=== PATIENT | female | born 1955 | race Caucasian/White ===

== ENCOUNTER 2020-01-04 06:54 | Outpatient (REF) | payer MEDICARE, OTHER, SELFPAY ==
[2020-01-04 08:20] LABS: MANUAL DIFF FLAG NO
[2020-01-04 08:22] LABS: Basophils Absolute Auto 0.1 X10*3/uL (0.0-0.2); Basophils Percent Auto 0.7 % (0-2); Eosinophils Absolute Auto 0.3 X10*3/uL (0.0-0.4); Eosinophils Percent Auto 4.6 % (0-4); Hematocrit 44.9 % (37-47); Hemoglobin 14.7 g/dl (12.0-16.0); Imm Gran Abs Auto 0.02 X10*3/uL (0.00-0.03); Imm Gran Pct Auto 0.3 % (0.0-0.4); Lymphocytes Absolute Auto 2.4 X10*3/uL (1.2-4.9); Mean Corpuscular HGB Conc 32.7 g/dl (31.0-35.0); Mean Corpuscular Volume 88.6 fL (80-98); Mean Platelet Volume 9.9 fL (9.4-12.3); Monocytes Absolute Auto 0.6 X10*3/uL (0.1-1.2); Monocytes Percent Auto 8.1 % (2-11); Neutrophils Absolute Auto 3.5 X10*3/uL (2.0-8.3); Neutrophils Percent Auto 51.3 % (45-73); Platelet Count 340 X10*3/uL (160-400); Red Blood Count 5.07 X10*6/uL (4.20-5.50); Red Cell Distribution Width 12.3 % (11.0-16.0); White Blood Count 6.9 X10*3/uL (4.8-10.8)
[2020-01-04 08:49] LABS: Alanine Aminotransferase 17 U/L (0-31); Albumin Level 4.1 g/dL (3.5-5.0); Alkaline Phosphatase 99 U/L (39-117); Anion Gap 13 (12-20); Aspartate Amino Transferase 16 U/L (5-31); Bilirubin Total 0.8 mg/dL (0.0-1.0); Blood Urea Nitrogen 13 mg/dL (9-16); Calcium 8.9 mg/dL (8.4-10.2); Carbon Dioxide 26 mmol/L (22-29); Chloride 105 mmol/L (96-108); Cholesterol 126 mg/dL; Estimated Glomerular Filt Rate > 60; Glucose Fasting 86 mg/dL (60-99); HDL Cholesterol 39 mg/dL; LDL Cholesterol Calculated 71 mg/dl; Potassium 4.5 mmol/l (3.3-5.1); Sodium 139 mmol/L (135-145); Total Protein 6.5 g/dL (6.5-8.0); Triglycerides 83 mg/dL
== END 2020-01-04 06:55 | disposition home or self-care (01) ==
LOC: HO.LAB 06:54
PROVIDERS: PCP Internal Medicine Medical Oncology; Visit Provider Internal Medicine Medical Oncology
DX: E78.2 Mixed hyperlipidemia (principal)
CPT/HCPCS: 36415; 80053; 80061; 85025

== ENCOUNTER 2021-02-15 12:24 | Outpatient (REF) | payer MEDICARE, OTHER, SELFPAY ==
--- NOTE | ~2021-02-15 | MM_ITS ---
EXAMINATION: BONE DENSITOMETRY CLINICAL INDICATION: Encounter for screening for osteoporosis. COMPARISON: This is the patient's baseline examination. TECHNIQUE: Using a [employer] DXA System (software version: 13.1) manufactured by [employer], dual-energy x-ray absorptiometry was performed of the lumbar spine and left hip. The images are of good technical quality. Summary results are attached. FINDINGS: AP SPINE L1-L4: BMD 0.977 g/cm2, Z-score 0.0, T-score -1.7, osteopenia. LEFT FEMUR, NECK: BMD 0.678 g/cm2, Z-score -1.0, T-score -2.6, osteoporosis. LEFT FEMUR, TOTAL: BMD 0.769 g/cm2, Z-score -0.5, T-score -1.9, osteopenia. IDENTIFIED RISK FACTORS: Menopause. HISTORY OF FRACTURE: None listed. MEDICATIONS: None listed. MM/XR DEXA axial skeleton IMPRESSION: 1. DIAGNOSIS: Osteoporosis based on the lowest T-score value of -2.6 in the femoral neck applying World Health Organization criteria. 2. 10-YEAR FRACTURE RISK PREDICTION, FRAX: Major osteoporotic fracture (clinical spine, forearm, hip or shoulder) 14.5%. Hip fracture 3.4%. 3. Treatment Recommendations: NOF guidelines recommend consideration for treatment in postmenopausal women and men age 50 and older presenting with the following: -A hip or vertebral (clinical or morphometric) fracture. -T-score less than or equal to -2.5 at the femoral neck or spine after appropriate evaluation to exclude secondary causes. -Low bone mass at the hip or spine and a 10-year fracture probability by FRAX of greater than or equal to 3% for hip fracture or greater than or equal to 20% for major osteoporotic fracture based on the [place] adapted WHO algorithm. 4. Other Recommendations: All treatment decisions require clinical judgment and consideration of individual patient factors, including patient preferences, comorbidities, previous drug use, risk factors not captured in the FRAX model (e.g. frailty, falls, vitamin D deficiency, increased bone turnover, interval significant decline in bone density) and possible under or overestimation of fracture risk by FRAX. Additional medical evaluation for secondary cause of low bone mineral density may be appropriate. FUTURE SCAN RECOMMENDATION: People with diagnosed cases of osteoporosis or at high risk for fracture should have regular bone mineral density tests. For patients eligible for Medicare, routine testing is allowed once every 2 years. The testing frequency can be increased to one year for patients who have rapidly progressing disease, those who are receiving or discontinuing medical therapy to restore bone mass, or have additional risk factors.
--- NOTE | ~2021-02-15 | MM_ITS ---
EXAMINATION: MM SCREENING DIGITAL BREAST TOMOSYNTHESIS, BILATERAL CLINICAL INFORMATION: Screening. Asymptomatic. The lifetime risk of breast cancer based on the Tyrer-Cuzick Model is 6%. COMPARISON: Mammography: 08/31/2019, 08/25/2018, 06/23/2017, 05/07/2016 TECHNIQUE: Digital breast tomosynthesis is performed in both the craniocaudal and mediolateral oblique views along with computer-aided detection (CAD). Synthesized 2D images are generated from the tomosynthesis. Additional right MLO view is provided. FINDINGS: There are scattered areas of fibroglandular density (ACR BI-RADS breast composition Category b). There are no significant masses, abnormal calcifications, or other abnormalities. Parenchymal pattern is similar to prior studies. There is no developing density or architectural abnormality. The axilla and skin contours are unremarkable. No significant changes. MM/MM tomosynthesis screening BI IMPRESSION: No mammographic evidence of malignancy. ASSESSMENT: BI-RADS 1: Negative RECOMMENDATION: Routine annual mammography screening. This patient's information was entered into a reminder system with a target due date for their next mammogram.
== END 2021-02-15 12:25 | disposition home or self-care (01) ==
LOC: HO.MAMMO 12:24
PROVIDERS: PCP Internal Medicine Medical Oncology; Visit Provider Obstetrics & Gynecology Gynecology
DX: Z12.31 Encounter for screening mammogram for malignant neoplasm of breast (principal); Z13.820 Encounter for screening for osteoporosis; M81.0 Age-related osteoporosis without current pathological fracture; N95.9 Unspecified menopausal and perimenopausal disorder; Z78.0 Asymptomatic menopausal state
CPT/HCPCS: 77063; 77067; 77080

== ENCOUNTER 2022-01-30 07:52 | Outpatient (REF) | payer MEDICARE, OTHER, SELFPAY ==
[2022-01-30 08:49] LABS: COVID-19 Test Negative (Negative); IDNOW Serial# 16C4AD1C
== END 2022-01-30 07:53 | disposition home or self-care (01) ==
LOC: HO.LAB 07:52
PROVIDERS: Visit Provider Internal Medicine
DX: Z20.822 Contact with and (suspected) exposure to COVID-19 (principal)
CPT/HCPCS: 87635; C9803

== ENCOUNTER 2022-03-17 13:04 | Outpatient (REF) | payer MEDICARE, OTHER, SELFPAY ==
--- NOTE | ~2022-03-17 | MM_ITS ---
EXAMINATION: MM SCREENING DIGITAL BREAST TOMOSYNTHESIS, BILATERAL CLINICAL INFORMATION: Screening. Asymptomatic. The lifetime risk of breast cancer based on the Tyrer-Cuzick Model is 6.5%. COMPARISON: Mammography: February 15, 2021 and studies dating back to March 12, 2015 TECHNIQUE: Digital breast tomosynthesis is performed in both the craniocaudal and mediolateral oblique views along with computer-aided detection (CAD). Synthesized 2D images are generated from the tomosynthesis. FINDINGS: The breasts are almost entirely fatty (ACR BI-RADS breast composition Category a). There are no significant masses, abnormal calcifications, or other abnormalities. MM/MM tomosynthesis screening BI IMPRESSION: No significant changes from prior exam. ASSESSMENT: BI-RADS 1: Negative RECOMMENDATION: Routine annual mammography screening. This patient's information was entered into a reminder system with a target due date for their next mammogram.
== END 2022-03-17 13:05 | disposition home or self-care (01) ==
LOC: HO.MAMMO 13:04
PROVIDERS: PCP Family Medicine; Visit Provider Obstetrics & Gynecology Gynecology
DX: Z12.31 Encounter for screening mammogram for malignant neoplasm of breast (principal)
CPT/HCPCS: 77063; 77067

== ENCOUNTER 2022-03-21 08:15 | Outpatient (REF) | payer MEDICARE, OTHER, SELFPAY ==
[2022-03-21 08:43] LABS: COVID-19 Test Negative (Negative); IDNOW Serial# 16C4AD1C
== END 2022-03-21 08:16 | disposition home or self-care (01) ==
LOC: HO.LAB 08:15
PROVIDERS: Visit Provider Internal Medicine
DX: Z20.822 Contact with and (suspected) exposure to COVID-19 (principal)
CPT/HCPCS: 87635; C9803

== ENCOUNTER 2022-06-07 10:11 | Outpatient (REF) | payer MEDICARE, OTHER, SELFPAY | END 2022-06-07 10:12 | disposition home or self-care (01) | LOC: HO.LAB 10:11 | PROVIDERS: Visit Provider Nurse Practitioner Acute Care | DX: Z13.89 Encounter for screening for other disorder (principal) ==

== ENCOUNTER 2022-06-07 11:26 | Outpatient (REF) | payer MEDICARE, OTHER, SELFPAY ==
[2022-06-07 12:11] LABS: Influenza A PCR NEGATIVE (Negative); Influenza B PCR NEGATIVE (Negative); Resp Syncy Virus RNA Qual PCR NEGATIVE (Negative); SARS COV2 PCR INHOUSE POSITIVE (Negative)
== END 2022-06-07 11:27 | disposition home or self-care (01) ==
LOC: HO.LNP 11:26
PROVIDERS: Visit Provider Nurse Practitioner Acute Care
DX: Z20.822 Contact with and (suspected) exposure to COVID-19 (principal); R68.89 Other general symptoms and signs
CPT/HCPCS: 0241U

== ENCOUNTER 2023-04-16 15:36 | Outpatient (REF) | payer MEDICARE, OTHER, SELFPAY | END 2023-04-16 15:37 | disposition home or self-care (01) | LOC: HO.MAMMO 15:36 | PROVIDERS: PCP Family Medicine; Referring Provider Obstetrics & Gynecology Gynecology; Visit Provider Family Medicine | DX: Z12.31 Encounter for screening mammogram for malignant neoplasm of breast (principal) | CPT/HCPCS: 77063; 77067 ==

== ENCOUNTER → 2023-04-16 16:15 | Outpatient (BNV) | payer MEDICARE, OTHER, SELFPAY | PROVIDERS: PCP Family Medicine; Referring Provider Obstetrics & Gynecology Gynecology; Visit Provider Radiology Diagnostic Radiology | DX: Z12.31 Encounter for screening mammogram for malignant neoplasm of breast (principal) | CPT/HCPCS: 77063; 77067 ==

== ENCOUNTER 2024-05-13 08:26 | Outpatient (REF) | payer MEDICARE, OTHER, SELFPAY ==
--- OUTSIDE RECORDS SUMMARY | 2024-05-13 08:45 | XMS_ITS ---
Author Organization [employer] [facility] Address [address] [place] [address] Care Team Providers Care Outside Sales Manager Name Role Phone JOANNA BIRCH MD Primary Care Provider Kim Bautista Unavailable [phone] Allergies Allergen (clinical drug ingredient) Drug/Non Drug Allergy documented on EMR Reaction Allergy Type Onset Date Status Penicillin Unknown Drug Allergy Active Substance with sulfonamide structure and antibacterial mechanism of action (substance) Sulfa Antibiotics Skin Rash Drug Allergy Active Results Component Value Reference Range Notes Urinalysis (Not yet reviewed by provider) Interpretation: Performing Lab: Notes/Report: NITRITE NEG PH 5.0 PROTEIN TRACE S.G 1.030 WBC NEG GLUCOSE NEG KETONES NEG UROBILINOGEN NEG BILIRUBIN NEG BLOOD MED COMPLETE URINALYSIS Reviewed date:03/22/2023 12:12:30 PM Interpretation: Performing Lab:Testing performed or reported by [facility], a Service of [facility], [address] [place] [address] Bernardo Fuentes MD, Linoleum Floor Layer [facility]# [id number] Notes/Report: APPEAR/COLOR YELLOW CLEAR SP. GRAVITY 1.024 (1.002-1.030) URINE PH 6.0 (5.0-8.0) URINE ALBUMIN TRACE (NEG) URINE GLUCOSE NEGATIVE (NEG) URINE KETONES NEGATIVE (NEG) URINE BILIRUBIN NEGATIVE (NEG) URINE HEMOGLOBIN TRACE (NEG) URINE NITRITE NEGATIVE (NEG) URINE LEUKOCYTE TRACE (NEG) UROBILINOGEN NORMAL (NORM) MG/DL URINE WBCs 9 (0-5) /HPF URINE RBCs 4 (0-3) /HPF BACTERIA SLIGHT (NEG) HPF MUCUS SLIGHT SQUAMOUS EPITH 3 (0-8) /HPF CALCIUM OXALATE CRYSTAL SLIGHT URINE CULTURE Reviewed date:03/25/2023 02:25:13 PM Interpretation: Performing Lab:Testing performed or reported by [facility], a Service of [facility], [address] [place] [address] [place] [address] Bernardo Fuentes MD, Linoleum Floor Layer [facility]# [id number] Notes/Report: SPECIMEN DESCRIPTION URINE CLEAN CATCH/MIDSTREAM SPECIAL REQUESTS NONE CULTURE NO GROWTH REPORT STATUS FINAL 03/20/2023 REASON FOR VISIT ? UTI Medications Medication SIG (Take, Route, Frequency, Duration) Notes Start Date End Date Status Lipitor 40MG 1 ORAL daily for -3 Costa-MJ 06/23/2011 Active Calcium + D 500-1000-40 MG-UNT-MCG as directed Orally Active Yuvafem 10 MCG 1 tablet Vaginal TWI CE A WEEK for 90 days 03/19/2023 Active Vital Signs Temperature 97.1 degrees Fahrenheit 03/19/19 24 Blood pressure systolic 118 mm Hg 03/19/19 24 Blood pressure diastolic 78 mm Hg 024 Height 61 in 03/19/2023 Weight 143 lbs 03/19/2023 BMI 27.02 kg/m2 03/19/2023 Encounters Encounter Location Date Provider Diagnosis Total [address] [place] [address] 03/19/2023 Kim Lagunas Dysuria R30.0 and Postmenopausal atrophic vaginitis N95.2 Assessments Encounter Date Diagnosis (ICD Code) Assessment Notes Treatment Notes Treatment Clinical Notes Section Notes 03/19/2023 Dysuria (ICD-10 - R30.0) OFFICIAL UA AND URINE C/S INCREASE FLUID INTAKE. CONITNUE FOLLOW UP WITH UROLOGIST. 03/19/2023 Postmenopausal atrophic vaginitis (ICD-10 - N95.2) DISCUSSED FINDINGS, DX AND TX OPTIONS. BENEFITS OF INTRAVAGINAL ESTROGEN ON BLADDER AND VAGINA WERE EMPHASIZED. RECOMMENDED YUVAFEM. PAT AGREED. SHE HAS NO CONTRAINDICATIONS AND ACCEPTS RISKS. DETAILED INSTRUCTIONS AND RX WERE GIVEN. Plan Of Treatment Medication Medication Name Sig Start Date Stop Date Notes Yuvafem 10 MCG 1 tablet Vaginal TWICE A WEEK for 90 days 0 03/19/2023 Treatment Notes Assessment Notes Dysuria OFFICIAL UA AND URINE C/S INCREASE FLUID INTAKE. CONITNUE FOLLOW UP WITH UROLOGIST. Postmenopausal atrophic vaginitis DISCUSSED FINDINGS, DX AND TX OPTIONS. BENEFITS OF INTRAVAGINAL ESTROGEN ON BLADDER AND VAGINA WERE EMPHASIZED. RECOMMENDED YUVAFEM. PAT AGREED. SHE HAS NO CONTRAINDICATIONS AND ACCEPTS RISKS. DETAILED INSTRUCTIONS AND RX WERE GIVEN. Pending Test Test Name Order Date Urinalysis 03/19/2023 Next Appt Details Follow Up: prn, Reason: Progress Notes * RONALD MOOREDOB:1955 (67 yo F)Acc No.[id number]:03/19/2023 PROGRESS NOTES Patient:?RONALD MOORE Appointment Provider:?Kim harris M.D. :1955???Age:67 Y???Sex:Female D ate:03/19/2023 Address:[address] [place], [place] [id number] Pcp:JOANNA BIRCH MD Subjective: * Chief Complaints: * ? UTI * HPI: ???New/Follow-up Patient Consult:? PAT C/O URINARY URGENCY, FREQUENCY AND DYSURIA AND WAS SEEN AT URGENT CARE ON 03/14/22. SHE WAS TOLD SHE HAD A UTI BASED ON THEIR URINALYSIS. SHE WAS GIVEN AN ATIBIOTIC THAT HER PHARMACIST REFUSED TO FILL DUE TO HER PCN ALLERGY. SHE CALLED ME OVER THE WEEKEND AND I SENT HER AN RX FOR MACROBID. SHE LATER GOT A PHONE CALL FROM URGENT CARE SAYING HER CULTURE WAS NEGATIVE. ?PAT SAYS SHE STILL HAS SLIGHT DYSURIA AND HAS NOTED VAGINAL DISCOMFORT. SHE DENIES DYSPAREUNIA.SHE WILL COMPLETE MACROBID INTAKE, WE WILL SEND ANOTHER SAMPLE OF URINE FOR OFFICIAL UA AND URINE C/S. ?SHE HAS A HX OF NEPHROLITHIASIS AND USED TO SEE DR CHARLES. SHE IS NOW SEEING DR MCCANN. CT SCAN WAS PERFORMED AND IT SHOWED SMALL BILATERAL KIDNEY STONES. SHE WILL CONTINUE FOLLOW UP WITH HIM. * ROS:?general:?no?chest pain.?no?palpitations.?no?headache.?no?cough.?no?shortness of breath.?no?fever.?no?unexplained weight loss.?no?nausea/vomiting.?no?change in bowel movements.?no blood in stool.?genitourinary complaints?yes,?VAGINAL DRYNESS, SLIGHT DYSURIA.?no?skin complaints.? * Medical History:? * Radiosonde Operator History:?/ Para?0/0.?Sexual activity?currently sexually active.?Last Pap Smear:?08/02/18 NIL, NEG HPV, 08/24/13 NEG HRHPV, 05/01/12, neg.?Mammogram:?02/2022, 02/15/21 < 50% density, 08/31/19 < 50% density, 06/23/2017, Breast Tissue is Almost Entirely Fatty.?Abnormal Pap Smear:?No History of Abnormal Pap Smears.?LMP and menses?Belia 2010.? Control:?None.?Menopause: ?Began at age: ?55 ???Colonoscopy?01/2017, 2006.?Bone Density:?02/15/21, 01/19/14.? * OB History:?Total pregnancies?0.? * Medications:?TakingCalcium + D 500-1000-40 MG-UNT-MCG Tablet Chewable as directed Orally Lipitor 40MG 30 1 ORAL daily, Notes: Costa-MJTaking Calcium + D 500-1000-40 MG-UNT-MCG Tablet Chewable as directed Orally Taking Lipitor 40MG 30 1 ORAL daily, Notes: Costa-MJDiscontinuedPremarin 0.625 MG/GM Cream 1 GRAM Vaginal TWICE WEEKLYMedication List reviewed and reconciled with the patientDiscontinued Premarin 0.625 MG/GM Cream 1 GRAM Vaginal TWICE WEEKLYMedication List reviewed and reconciled with the patient * Allergies:?Sulfa Antibiotics : Skin Rash - AllergyPenicillin: Allergyno[Allergies Verified] Objective: * Vitals:?Ht: 61 in, Wt: 143 l bs, BMI:27.02 Index, BP: 118/78 mm Hg, Temp: 97.1 F. * Examination: ???Gynecological: ?EXTERNAL GENITALIA:?Normal female. No lesions, erythema or discharge.?VAGINA:? atrophic changes.?CERVIX:?No cervical motion tenderness, discharge or lesions.?UTERUS:? normal size, shape and consistency, normal mobility, nontender.?ADNEXA:?no masses or tenderness bilaterally.? Assessment: * Assessment: 1.?Postmenopausal atrophic v aginitis - N95.2?2.?Dysuria - R30.0 (Primary)? Plan: * Treatment: 2.?Postmenopausal atrophic v aginitis? Start Yuvafem Tablet, 10 MCG, 1 tablet, Vaginal, TWICE A WEEK, 90 days, 24 Tablet, Refills 4.?? Notes: DISCUSSED FINDINGS, DX AND TX OPTIONS. BENEFITS OF INTRAVAGINAL ESTROGEN ON BLADDER AND VAGINA WERE EMPHASIZED. RECOMMENDED YUVAFEM. PAT AGREED. SHE HAS NO CONTRAINDICATIONS AND ACCEPTS RISKS. DETAILED INSTRUCTIONS AND RX WERE GIVEN.?? * Labs:? * ?Lab: Urinalysis ? Value Reference Range ?NITRITE NEG * ?PH 5.0 * ?PROTEIN TRACE * ?S.G 1.030 * ?WBC NEG * ?GLUCOSE NEG * ?KETONES NEG * ?UROBILINOGEN NEG * ?BILIRUBIN NEG * ?BLOOD MED * Gilbert Michaels 03/19/2023 11:31:24 AM > ?Lab: URINE CULTURE?Lab: COMPLETE URINALYSIS * Procedure Codes:? * Follow Up:?prn * Images: Billing Information: * Visit Code:? * Procedure Codes:? * Sign off status: Completed true * Appointment Provider:?Kim Lagunas M.D. Date:?03/19/2023 Generated for Zane vaz/Suyapa/eTtroysmitting on:?05/13/2024 08:45 AM EDT History and Physical Notes * HPI (History of Present Illness) Category Sub-Category Detail Notes Category Not es New/Follow-up Patient Consult PAT C/O URINARY URGENCY, FREQUENCY AND DYSURIA AND WAS SEEN AT URGENT CARE ON 03/14/22. SHE WAS TOLD SHE HAD A UTI BASED ON THEIR URINALYSIS. SHE WAS GIVEN AN ATIBIOTIC THAT HER PHARMACIST REFUSED TO FILL DUE TO HER PCN ALLERGY. SHE CALLED ME OVER THE WEEKEND AND I SENT HER AN RX FOR MACROBID. SHE LATER GOT A PHONE CALL FROM URGENT CARE SAYING HER CULTURE WAS NEGATIVE. PAT SAYS SHE STILL HAS SLIGHT DYSURIA AND HAS NOTED VAGINAL DISCOMFORT. SHE DENIES DYSPAREUNIA.SHE WILL COMPLETE MACROBID INTAKE, WE WILL SEND ANOTHER SAMPLE OF URINE FOR OFFICIAL UA AND URINE C/S. SHE HAS A HX OF NEPHROLITHIASIS AND USED TO SEE DR CHARLES. SHE IS NOW SEEING DR MCCANN. CT SCAN WAS PERFORMED AND IT SHOWED SMALL BILATERAL KIDNEY STONES. SHE WILL CONTINUE FOLLOW UP WITH HIM. Examination Category Sub-Category Detail Notes Category Not es Gynecological CERVIX: No cervical alana on tenderness, discharge or lesions VAGINA: atrophic changes EXTERNAL GENITALIA: Normal female. No le sions, erythema or discharge UTERUS: normal size, shape a nd consistency, normal mobility, nontender ADNEXA: no masses or tendern ess bilaterally
--- OUTSIDE RECORDS SUMMARY | 2024-05-13 08:45 | XMS_ITS | Patient Health Record ---
Author Organization [employer] [facility] Address [address] [place] [address] Care Team Providers Care Attending Pathologist Name Role Phone JOANNA BIRCH MD Primary Care Provider Kim Bautista Unavailable [phone] Allergies Allergen (clinical drug ingredient) Drug/Non Drug Allergy documented on EMR Reaction Allergy Type Onset Date Status Penicillin Unknown Drug Allergy Active Substance with sulfonamide structure and antibacterial mechanism of action (substance) Sulfa Antibiotics Skin Rash Drug Allergy Active Reason For Referral No Information Medications Medication SIG (Take, Route, Frequency, Duration) Notes Start Date End Date Status Lipitor 40MG 1 ORAL daily for -3 Costa-MJ 06/23/2011 Active Calcium + D 500-1000-40 MG-UNT-MCG as directed Orally Active Yuvafem 10 MCG 1 tablet Vaginal TWI CE A WEEK for 90 days 03/19/2023 Active Social History Tobacco Use: Social History Observation Description Date Details (start date - stop date) Never Smoker NA - NA Tobacco Use/Smoking Question Answer Notes Are you a nonsmoker Alcohol Screen (Audit-C) Question Answer Notes Did you have a drink contain ing alcohol in the past year? Yes How often did you have a dri nk containing alcohol in the past year? Monthly or less (1 point) How many drinks did you have on a typical day when you were drinking in the past year? 1 or 2 drinks (0 point) Points 1 Interpretation Negative Tobacco use other than smoking: Question Answer Notes Are you an other tobacco user? No Problems Problem Type SNOMED Code ICD Code Onset Dates Problem Status W/U Status Risk Notes Problem Frequency of micturition (774182440) Frequency of micturition (R35.0) Active confirmed Problem Postmenopausal atrophic vaginitis (02259633) Postmenopausal atrophic vaginitis (N95.2) Active confirmed Problem Age-related osteoporosis (342616811) Age-related osteoporosis without current pathological fracture (M81.0) Active confirmed Problem Gynecological examination normal (984810887944084) Encounter for gynecological examination (general) (routine) without abnormal findings (Z01.419) Active confirmed Problem Hyperlipidemia (86473962) Hyperlipidemia, unspecified (E78.5) Active confirmed Problem Calculus of kidney (09839315) Calculus of kidney (N20.0) Active confirmed Problem Atrophy of vulva (982223630) Atrophy of vulva (N90.5) Active confirmed Problem Unspecified menopausal and perimenopausal disorder (N95.9) Active confirmed Problem Dysuria (16011571) Dysuria (R30.0) Active confirmed Problem Dysuria (06310083) Dysuria (788.1) Active confirmed Diag Problem Gynecological examination normal (124590922651010) Routine gynecological examination (V72.31) Active confirmed Encounters Encounter Location Date Provider Diagnosis [address] [address] 12/21/2023 Kim Lagunas Plan Of Treatment Pending Test Test Name Order Date MAMMOGRAM, SCREENING 09/20/2014 MAMMOGRAM, SCREENING 10/22/2022 Bone Density 07/23/2020 Urinalysis 03/19/2023 Urinalysis 12/07/2018 25OH VITAMIN D 02/26/2021 COMPLETE URINALYSIS 07/22/2021 COMPLETE URINALYSIS 08/13/2021 COMPREHENSIVE METABOLIC PANEL 02/26/2021 N-TELOPEPTIDE CROSS 02/26/2021 PTH, INTACT 02/26/2021 TSH 02/26/2021 URINE CULTURE 07/22/2021 URINE CULTURE 08/13/2021 BONE DENSITY 05/14/2020 BONE DENSITY 10/22/2022 MM Digital Mammo Screening 10/22/2022 MM Digital Mammo Screening 05/14/2020 PELVIC ULTRASOUND W/TRANSVAGINAL 018 Insurance Providers Payer Name Payer Address Payer Phone Subscriber Number Group Number Insured Name Patient Relationship to Insured Coverage Start Date Coverage End Date MEDICARE [address] [facility] [place] [id number] RONALD MOORE Self - patient is the insured [employer] [address] [facility] [place] [id number] [phone] [id number] RONALD MOORE Self - patient is the insured Medical (General) History Medical History History ICD Code Postmenopausal atrophic vaginitis N95.2 Gross hematuria R31.0 Calculus of kidney N20.0 Abdominal distension (gaseous) R14.0 Unspecified menopausal and perimenopausa l disorder N95.9 Atrophy of vulva N90.5 Disorder of bone density and structure, unspecified M85.9 Dysuria R30.0 Hyperlipidemia, unspecified E78.5 Age-related osteoporosis without current pathological fracture M81.0 Surgical History Surgery Date(Month/Year) Appendectomy Colonoscopy Kidney Stone Excision Rossiter Teeth Hospitalization History Reason Date(Month/Year) See Surgical Hx
--- OUTSIDE RECORDS SUMMARY | 2024-05-13 08:46 | XMS_ITS ---
Author Organization [facility] Address [address] [place] [address] Care Team Providers Care Medical Apparatus Model Maker Name Role Phone JOANNA BIRCH MD Primary Care Provider Kim Bautista Unavailable [phone] REASON FOR VISIT YUVAFEM Encounters Encounter Location Date Provider Diagnosis [facility] [address] [address] 12/21/2023 Kim Lagunas Plan Of Treatment No Information Progress Notes * TERESAYANELIHUMADOB:1955 (68 yo F)Acc No.[id number]:12/21/2023 Patient:?RONALD MOORE :1955???Age:68 Y???Sex:Female Address:[address] [place] [address], [address] * true * Date:? Generated for Zane vaz/Suyapa/eTransmitting on:?05/13/2024 08:45 AM EDT
== END 2024-05-13 08:27 | disposition home or self-care (01) ==
LOC: HO.MAMMO 08:26
PROVIDERS: PCP Family Medicine; Visit Provider Family Medicine
DX: Z12.31 Encounter for screening mammogram for malignant neoplasm of breast (principal)
CPT/HCPCS: 77063; 77067

== ENCOUNTER → 2024-05-13 08:45 | Outpatient (BNV) | payer MEDICARE, OTHER, SELFPAY | PROVIDERS: PCP Family Medicine; Visit Provider Internal Medicine | DX: Z12.31 Encounter for screening mammogram for malignant neoplasm of breast (principal) | CPT/HCPCS: 77063; 77067 ==